=== PATIENT | female | born 1960 | race Caucasian/White ===

== ENCOUNTER 2023-01-26 16:10 | Outpatient (CLI) | payer BC, SELFPAY | END 2023-01-26 16:11 | disposition home or self-care (01) | LOC: FRMREF 16:11 | PROVIDERS: PCP Physician Assistant Medical; Visit Provider Dermatology | DX: B00.9 Herpesviral infection, unspecified (principal) | CPT/HCPCS: 80053 ==

== ENCOUNTER 2023-03-23 11:45 | Outpatient (CLI) | payer BC, SELFPAY | END 2023-03-23 11:46 | disposition home or self-care (01) | LOC: NFLDREF 03-24 10:23 | PROVIDERS: PCP Physician Assistant Medical; Referring Provider Physician Assistant Medical; Visit Provider Registered Nurse | DX: R53.83 Other fatigue (principal); N95.1 Menopausal and female climacteric states; E66.3 Overweight; Z13.6 Encounter for screening for cardiovascular disorders | CPT/HCPCS: 82306; 84443 ==

== ENCOUNTER 2023-04-06 07:31 | Outpatient (CLI) | payer BC, SELFPAY | END 2023-04-06 07:32 | disposition home or self-care (01) | PROVIDERS: PCP Physician Assistant Medical; Referring Provider Physician Assistant Medical; Visit Provider Registered Nurse | DX: Z13.6 Encounter for screening for cardiovascular disorders (principal) | CPT/HCPCS: 80061 ==

== ENCOUNTER 2025-01-15 06:25 | Day surgery (SDC) | payer BC, SELFPAY ==
[2025-01-15 06:38] VITALS: BMI 28.8
[2025-01-15 06:48] VITALS: BP 128/81; PULSE 70; RESP 16; TEMP 36.2; O2SAT 98
--- NOTE | 2025-01-15 07:12 | P.ORPRC_ITS ---
Procedure Note Date of procedure: 01/15/25 Procedure: PREOPERATIVE DIAGNOSIS: 1. Right thumb trigger digit POSTOPERATIVE DIAGNOSIS: 1. Right thumb trigger digit PROCEDURE: 1. Right thumb trigger (A1 abril) release SURGEON: Vaughn Yi MD. FOREIGN STUDENT ADVISER TEACHER: Brittney Carmona P.A.-C. An assistant basketball coach was critical for this case to aid in patient positioning, tissue retraction, limb manipulation/positioning, and closure. ANESTHESIA: Local anesthetic IMPLANTS: None TOURNIQUET: 8 min at 250 mmHg COMPLICATIONS: None INDICATIONS: The patient is a pleasant 64-year-old female who has history of right thumb pain and triggering. Symptoms did not improve with conservative management. Patient subsequently elected to proceed with surgical intervention consisting of right thumb A1 abril release. Prior to surgery risks and benefits were discussed with patient all questions were answered informed consent was obtained. DESCRIPTION OF PROCEDURE: Patient was seen preoperatively and operative site was marked. Subcutaneous tissues overlying the right thumb A1 abril were injected with a combination of 1% lidocaine and 0.25% bupivacaine. Patient was then brought to the operating room placed in supine position on the OR table. A tourniquet was placed on the patient's right arm and right upper extremity was prepped and draped in usual sterile fashion. A surgical time-out was performed confirming patient name, procedure, and location. Operative extremity was then elevated, and tourniquet was inflated to 225 mmHg. A skin incision measuring approximately 1 cm was made longitudinally over the A1 abril of the right thumb. Blunt dissection was used to dissect through sub cutaneous tissues. The underlying flexor tendons and A1 abril were identified and retractors were used to protect the neurovascular structures. The A1 abril was then released using a tenotomy scissor. After complete release of the A1 abril, the patient was asked to flex and extend their fingers, and no active triggering was noted. Tourniquet was then released and hemostasis was achieved with bipolar electrocautery. Total tourniquet time was 8 minutes. Wound was the irrigated with normal saline. Skin incision was closed with 4-0 nylon horizontal mattress sutures, and a sterile dressing was applied. Patient was then transferred to the recovery room in stable condition. POSTOPERATIVE PLAN: 1. Patient will be discharged to home day of surgery. 2. They were given instructions for wound care and finger range of motion exercises. 3. Return to the clinic for follow-up evaluation in 10-14 days for wound check and suture removal.
--- NOTE | 2025-01-15 07:12 | W.PM.H&PU ---
History & Physical Update History & Physical Update H&P Reviewed and patient assessed: No changes noted
[2025-01-15] MEDS: BUPIVACAINE 0.5% 30 ML INJECTION (07:16)
[2025-01-15] MEDS: LIDOCAINE 1% MDV 20 ML INJECTION (07:16)
--- NOTE | 2025-01-15 07:31 | SUR.PREOP ---
SAME DAY SURGERY LOCAL INJECTION SITE VERIFICATION WAS PERFORMED BY SURGEON/PA AND PATIENT PRIOR TO LOCAL ANESTHETIC BEING INJECTED TO OPERATIVE SITE.
[2025-01-15 07:40] VITALS: BP 145/83; PULSE 63; RESP 16; O2SAT 99
[2025-01-15 07:45] VITALS: BP 145/84; PULSE 60; RESP 16; O2SAT 99
[2025-01-15 07:50] VITALS: BP 146/83; PULSE 65; RESP 16; O2SAT 96
[2025-01-15 07:55] VITALS: BP 137/83; PULSE 61; RESP 16; O2SAT 97
[2025-01-15] MEDS: BACITRACIN OINTMENT BULK TUBE 1 APPLIC TOPICAL (07:55)
[2025-01-15 08:10] VITALS: BP 151/92; PULSE 67; RESP 16; TEMP 36.7; O2SAT 98
== END 2025-01-15 08:25 | disposition home or self-care (01) ==
PROVIDERS: PCP Physician Assistant Medical; Visit Provider Orthopaedic Surgery
PROC: (CPT 26055; principal; 2025-01-15 07:30)
DX: M65.311 Trigger thumb, right thumb (principal)
CPT/HCPCS: 26055; J2003; J0665

== ENCOUNTER 2025-02-06 12:02 | Outpatient (CLI) | payer BC, SELFPAY ==
[2025-02-06 23:10] LABS: Chlamydia DNA Amplified* NOT DETECTED (No Detected); GC DNA Amplified* NOT DETECTED (No Detected)
[2025-02-09 02:40] LABS: HPV Source Cervix; HPV, High Risk by TMA Not Detected
== END 2025-02-06 12:03 | disposition home or self-care (01) ==
PROVIDERS: PCP Physician Assistant Medical; Visit Provider Physician Assistant Medical
DX: Z00.01 Encounter for general adult medical examination with abnormal findings (principal); R41.89 Other symptoms and signs involving cognitive functions and awareness; R53.83 Other fatigue; E66.9 Obesity, unspecified; Z68.30 Body mass index [BMI] 30.0-30.9, adult; Z13.6 Encounter for screening for cardiovascular disorders; Z11.4 Encounter for screening for human immunodeficiency virus [HIV]; Z11.59 Encounter for screening for other viral diseases; Z11.3 Encounter for screening for infections with a predominantly sexual mode of transmission; Z11.51 Encounter for screening for human papillomavirus (HPV); Z12.4 Encounter for screening for malignant neoplasm of cervix; Z13.0 Encounter for screening for diseases of the blood and blood-forming organs and certain disorders involving the immune mechanism
CPT/HCPCS: 80053; 80061; 82306; 82607; 82728; 84443; 86703; 86803; 87491; 87591; 87624; 87625; 88141; 88142

== ENCOUNTER 2025-03-19 16:06 | Outpatient (CLI) | payer BC, SELFPAY | END 2025-03-19 16:07 | disposition home or self-care (01) | PROVIDERS: PCP Physician Assistant Medical; Visit Provider Physician Assistant Medical | DX: Z00.00 Encounter for general adult medical examination without abnormal findings (principal); E78.5 Hyperlipidemia, unspecified; E55.9 Vitamin D deficiency, unspecified; E53.8 Deficiency of other specified B group vitamins; E66.9 Obesity, unspecified; Z68.30 Body mass index [BMI] 30.0-30.9, adult; R61 Generalized hyperhidrosis; N95.1 Menopausal and female climacteric states; L60.3 Nail dystrophy; L65.9 Nonscarring hair loss, unspecified; Z11.9 Encounter for screening for infectious and parasitic diseases, unspecified; R53.83 Other fatigue; Z79.899 Other long term (current) drug therapy; B00.1 Herpesviral vesicular dermatitis; M79.605 Pain in left leg; M79.604 Pain in right leg; M79.672 Pain in left foot; M79.671 Pain in right foot | CPT/HCPCS: 82306; 82550; 82607; 84550; 86038; 86140; 86200; 86431; 86618; 86812 ==

== ENCOUNTER 2025-08-15 06:07 | Day surgery (SDC) | payer BC, SELFPAY ==
[2025-08-15] VITALS (10 sets, daily range): BP systolic 127–162; BP diastolic 73–96; PULSE 64–73; RESP 16; TEMP 36.5–36.6; O2SAT 97–100; BMI 28.0
--- NOTE | 2025-08-15 07:08 | SUR.PHASEI ---
Vital signs in OR documented on Phase I PACU vital sign document.
--- NOTE | 2025-08-15 07:13 | W.PM.H&PU ---
History & Physical Update History & Physical Update H&P Reviewed and patient assessed: No changes noted
--- NOTE | 2025-08-15 07:13 | PM.ORPRC ---
Procedure Note Date of procedure: 08/15/25 Procedure: PREOPERATIVE DIAGNOSIS: 1. Right carpal tunnel syndrome 2. Right ring finger trigger digit POSTOPERATIVE DIAGNOSIS: 1. Right carpal tunnel syndrome 2. Right ring finger trigger digit PROCEDURE: 1. Right open carpal tunnel release 2. Right ring finger A1 abril release SURGEON: Vaughn Yi MD. GAUGE CONTROLLER: Luis Lira An commercial lending assistant was critical for this case to aid in patient positioning, tissue retraction, limb manipulation/positioning, and wound closure. ANESTHESIA: Local anesthetic IMPLANTS: None ESTIMATED BLOOD LOSS: 5 mL TOURNIQUET: Not usual COMPLICATIONS: None of INDICATIONS: The patient is a pleasant 64-year-old female with history of right hand numbness and tingling in median nerve distribution, as well as triggering of the right ring finger. Symptoms were not improving with conservative treatment, and patient elected to proceed with surgical intervention consisting of right carpal tunnel release and right ring finger A1 abril release. Prior to surgery, the risks and benefits of the procedures were discussed with patient, all questions were answered, and informed consent was obtained. DESCRIPTION OF PROCEDURE: Patient was seen preoperatively and operative site was marked. The subcutaneous tissues overlying the right carpal tunnel and right ring finger A1 abril were injected with a combination of 0.5% bupivacaine and 1% lidocaine with epinephrine. Patient was then brought to the operating room and placed in the supine position on the OR table. A tourniquet was placed on the patient's right arm, and right upper extremity was prepped and draped in usual sterile fashion. A surgical time-out was performed confirming patient name, procedure, and location. Attention was 1st directed to the carpal tunnel release. A skin incision measuring approximately 3-4 cm was made in line with the ring finger extending from the distal wrist flexion crease to Contreras's cardinal line. Blunt dissection was used to dissect through subcutaneous tissues and palmar fascia. Bipolar electrocautery was used to achieve hemostasis. The transverse carpal ligament was identified and was sharply incised proximally with care taken to protect the underlying median nerve. The transverse carpal ligament was then sharply divided along its ulnar border using tenotomy scissors and a [place] blade with care taken to protect the underlying median nerve. Once the transverse carpal ligament was divided, the antebrachial fascia was released proximally. Attention was then directed to the ring finger A1 abril release. A skin incision measuring approximately 1 cm was made longitudinally over the A1 abril of the right ring finger. Blunt dissection was used to dissect through subcutaneous tissues. Bipolar electrocautery was used to achieve hemostasis. The underlying flexor tendons and A1 abril were identified and retractors were used to protect the neurovascular structures. The A1 abril was then released using a tenotomy scissor. After complete release of the A1 abril, the patient was asked to flex and extend their fingers, and no active triggering was noted. Both wounds were then irrigated with normal saline. Incisions were closed with 4-0 nylon horizontal mattress sutures, and a sterile dressing was applied. Patient was then transferred to the recovery room in stable condition. POSTOPERATIVE PLAN: 1. Patient will be discharged to home day of surgery. 2. Ice and elevation as needed for pain and swelling. 3. Tylenol and/or ibuprofen as needed for pain. Ultram as needed for severe pain 4. They were given instructions for wound care and finger range of motion exercises. 5. Return to the clinic for follow-up evaluation in 10-14 days for wound check and suture removal.
== END 2025-08-15 08:16 | disposition home or self-care (01) ==
PROVIDERS: PCP Physician Assistant Medical; Visit Provider Orthopaedic Surgery
PROC: (CPT 64721; principal; 2025-08-15 07:15)
DX: G56.01 Carpal tunnel syndrome, right upper limb (principal); M65.341 Trigger finger, right ring finger
CPT/HCPCS: 64721; 26055

== ENCOUNTER 2025-09-16 12:14 | Outpatient (CLI) | payer BC, SELFPAY ==
--- NOTE | 2025-09-16 14:24 | P.ANES_ITS ---
Anesthesia Charges Start Date/Time Anesthesia Start Date: 09/16/25 Anesthesia Start Time: 13:42 Stop Date/Time Anesthesia Stop Date: 09/16/25 Anesthesia Stop Time: 14:21 Coding CPT Codes CPT Codes: VARGAS LWR INTST NDSC NOS - 11030 ([id number]) P2 - PATIENT W/MILD SYST DISEASE, QK - WALLCOVERING TEXTURER 2-4 CNCRNT ANES PROC, QX - IT INFRASTRUCTURE SPECIALIST SVC W/ MD MED DIRECTION
--- NOTE | 2025-09-16 14:24 | W.ANESCHARGE ---
Anesthesia Charges Start Date/Time Anesthesia Start Date: 09/16/25 Anesthesia Start Time: 13:42 Stop Date/Time Anesthesia Stop Date: 09/16/25 Anesthesia Stop Time: 14:21 Coding CPT Codes CPT Codes: VARGAS LWR INTST NDSC NOS - [id number] ([id number]) P2 - PATIENT W/MILD SYST DISEASE, QK - CREDIT RELATIONSHIP MANAGER 2-4 CNCRNT ANES PROC, QX - LARD RENDERER SVC W/ MD MED DIRECTION
--- NOTE | 2025-09-16 14:56 | P.ANES_ITS ---
Anesthesia Charges Start Date/Time Anesthesia Start Date: 09/16/25 Anesthesia Start Time: 13:42 Stop Date/Time Anesthesia Stop Date: 09/16/25 Anesthesia Stop Time: 14:21 Coding CPT Codes CPT Codes: VARGAS LWR INTST NDSC NOS - [id number] ([id number]) P2 - PATIENT W/MILD SYST DISEASE, QK - SIDE SEAM ENVELOPE MACHINE OPERATOR 2-4 CNCRNT ANES PROC, QX - AUTOMOBILE REPAIR SERVICE ESTIMATOR SVC W/ MD MED DIRECTION
--- NOTE | 2025-09-16 14:56 | W.ANESCHARGE ---
Anesthesia Charges Start Date/Time Anesthesia Start Date: 09/16/25 Anesthesia Start Time: 13:42 Stop Date/Time Anesthesia Stop Date: 09/16/25 Anesthesia Stop Time: 14:21 Coding CPT Codes CPT Codes: VARGAS LWR INTST NDSC NOS - [id number] ([id number]) P2 - PATIENT W/MILD SYST DISEASE, QK - ENVELOPE FOLDING MACHINE OPERATOR 2-4 CNCRNT ANES PROC, QX - HAND FLATWORK FINISHER SVC W/ MD MED DIRECTION
== END 2025-09-16 12:15 | disposition home or self-care (01) ==
LOC: OP CLINIC 12:14
PROVIDERS: PCP Physician Assistant Medical; Visit Provider Surgery
DX: Z12.11 Encounter for screening for malignant neoplasm of colon (principal); D12.2 Benign neoplasm of ascending colon; D12.5 Benign neoplasm of sigmoid colon; D12.8 Benign neoplasm of rectum
CPT/HCPCS: 00811; 00812; 45385; J2704